=== PATIENT | male | born 1980 | race Caucasian/White ===

== ENCOUNTER 2022-12-22 00:41 | Inpatient (IN) | payer MEDICAID, OTHER ==
[2022-12-22] MEDS ORDERED: MAGNESIUM HYDROXIDE 2,400 MG/30 ML CUP PO PRN (21:11)
[2022-12-22] MEDS ORDERED: ACETAMINOPHEN TAB 325 MG TAB PO PRN (21:11)
[2022-12-22] MEDS ORDERED: MAG HYDROX/AL HYDROX/SIMETH 30 ML CUP PO PRN (21:11)
[2022-12-22] MEDS ORDERED: OLANZapine 5 MG TAB PO PRN (21:19)
[2022-12-22] MEDS ORDERED: OLANZapine 10 MG VIAL IM PRN (21:19)
[2022-12-22] MEDS ORDERED: hydrOXYzine pamoate 25 MG CAP PO PRN (22:00)
[2022-12-22] MEDS ORDERED: hydrOXYzine HCL 50 MG/ML 1 ML VIAL IM PRN (22:00)
[2022-12-23] MEDS: lamoTRIgine 100 MG TAB PO SCH ×2 (08:59→20:36)
[2022-12-23] MEDS: VENLAFAXINE HCL ER 150 MG CAP PO SCH (08:59)
[2022-12-23] MEDS: NICOTINE 14MG/24HR PATCH TRANSDERM SCH (08:59)
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
[2022-12-23 11:52] LABS: Basophils % (A) 0 %; Eosinophils # (A) 0.1 k/uL (0-0.7); Eosinophils % (A) 1 %; HCT 46.1 % (39.0-53.0); HGB 15.2 gm/dL (13.0-17.5); Lymphocytes # (A) 1.9 k/uL (1.0-4.8); Lymphocytes % (A) 26 %; MCH 32.4 pg (25.0-35.0); MCV 98.2 fL (80.0-100.0); Mean Platelet Volume 8.9; Monocytes # (A) 0.4 k/uL (0-1.0); Monocytes % (A) 6 %; Neutrophils # (A) 4.7 k/uL (1.3-7.7); Neutrophils % (A) 65 %; Platelet Count 250 k/uL (150-450); WBC 7.2 k/uL (3.8-10.6)
[2022-12-23 12:15] LABS: ALT 26 U/L (4-49); AST 33 U/L (17-59); African American GFR (CKD) >90 (>60 ml/min/1.73 sqM); Albumin 4.4 g/dL (3.5-5.0); Alkaline Phosphatase 73 U/L (38-126); Anion Gap 6 mmol/L; Bilirubin, Delta 0.2 mg/dL (0.0-0.2); Bilirubin,Unconjugated 0.3 mg/dL (0.0-1.1); Blood Urea Nitrogen 9 mg/dL (9-20); Calcium 9.3 mg/dL (8.4-10.2); Carbon Dioxide 28 mmol/L (22-30); Chloride 105 mmol/L (98-107); Glucose 109 mg/dL (74-99); Non-African American GFR(CKD) >90 (>60 ml/min/1.73 sqM); Potassium 4.7 mmol/L (3.5-5.1); Sodium 139 mmol/L (137-145); Total Bilirubin 0.5 mg/dL (0.2-1.3)
[2022-12-23 16:13] LABS: Chol/HDL Ratio 3.61 Ratio; LDL Cholesterol,Calculated 115.6 mg/dL (0.0-131.0); VLDL Calculation 19.56 mg/dL (5.00-40.00)
[2022-12-23] MEDS: FAMOTIDINE 20 MG TAB PO SCH (20:37)
[2022-12-23] MEDS: QUEtiapine 100 MG TAB PO SCH (20:37)
[2022-12-23] MEDS: TEMAZEPAM 7.5 MG CAP PO SCH (20:37)
--- NOTE | 2022-12-24 01:48 | P.CONS ---
History of Present Illness - Reason for Consult Consult date: 12/24/22 - History of Present Illness The patient is a 42-year-old male who was transferred from [facility] with the patient had presented to the emergency room with the depression and suicidal ideation. The patient was seen at the [facility] unit. He reports that he recently is undergoing a divorce and that he was feeling really down about his life especially after finding out that his was checking ot her men. He denied any physical complaints at the time of interview however. He denied experiencing chest discomfort, shortness of breath, fever, chills, cough, nausea, vomiting, abdominal pain, diarrhea. Denied tobacco, alcohol, or substance use Review of systems: Pertinent positives and negatives as discussed in HPI, a complete review of systems was performed and all other systems are negative. Physical examination: General: non toxic, no distress, appears at stated age, normal weight Derm: no unusual rashes/lesions, no unusual ecchymoses, warm, dry Head: atraumatic, normocephalic, symmetric Eyes: EOMI, no lid lag, anicteric sclera ENT: Nose and ears atraumatic, no thrush, no pharyngeal erythema Neck: trachea midline, supple Mouth: no lip lesion, mucus membranes moist Cardiovascular: S1S2 reg, no murmur, no edema Lungs: CTA bilateral, no rhonchi, no rales , no accessory muscle use Abdominal: soft, nontender to palpation, no guarding Ext: no gross muscle atrophy, no contractures, Neuro: No gross focal neuro deficits noted Psych: Alert, oriented, appropriate affect Assessment: Depression and suicidal ideation Data Review: Reviewed with glucose 109 with hemoglobin A1c 5.4 Plan: Defer management to primary psychiatry service Thank you for allowing us to participate in the care of this patient. We will follow peripherally. Do not hesitate to contact us with questions. Someone can be reached from the [facility] hospitalist group at all hours of the day at [phone]. Past Medical History Past Medical History: Eye Disorder, GERD/Reflux Additional Past Medical History / Comment(s): Patient far sided eyesight, GERD, hiatal hernia, incontinence, History of Any Multi-Drug Resistant Organisms: None Reported Past Surgical History: Appendectomy, Orthopedic Surgery, Tonsillectomy Additional Past Surgical History / Comment(s): Hx of 5 surgeries on R Rotator Cuff, Hx of 4 knee surgeries on bilateral knees Past Anesthesia/Blood Transfusion Reactions: No Reported Reaction Smoking Status: Current every day smoker - Past Family History Mother History Unknown: Yes Medications and Allergies Home Medications Medication Instructions Recorded Confirmed Type Alfuzosin HCl [Alfuzosin HCl ER] 10 mg PO DAILY 12/23/22 12/23/22 History Esomeprazole Magnesium [NexIUM 40 mg PO DAILY 12/23/22 12/23/22 History 24Hr] Famotidine 20 mg PO HS 12/23/22 12/23/22 History QUEtiapine [SEROquel] 100 mg PO HS 12/23/22 12/23/22 History Venlafaxine HCl [Effexor XR] 150 mg PO DAILY 12/23/22 12/23/22 History lamoTRIgine [LaMICtal] 150 mg PO BID 12/23/22 12/23/22 History Allergies Allergy/AdvReac Type Severity Reaction Status Date / Time amoxicillin Allergy Rash/Hives Verified 12/23/22 09:13 Penicillins Allergy Rash/Hives Verified 12/23/22 09:13 Results CBC & Chem 7: 12/23/22 10:51 12/23/22 10:51 Labs: Abnormal Lab Results - Last 24 Hours (Table) 12/23/22 Range/Units 10:51 Glucose 109 H (74-99) mg/dL
[2022-12-24] MEDS: NICOTINE 14MG/24HR PATCH TRANSDERM SCH (08:17)
[2022-12-24] MEDS: VENLAFAXINE HCL ER 150 MG CAP PO SCH (08:18)
[2022-12-24] MEDS: TAMSULOSIN 0.4 MG CAP.ER.24H PO SCH (08:18)
[2022-12-24] MEDS: PANTOPRAZOLE 40 MG TABLET PO SCH (08:18)
[2022-12-24] MEDS: lamoTRIgine 100 MG TAB PO SCH ×2 (08:18→19:59)
--- NOTE | 2022-12-24 11:09 | P.PN ---
Progress Note - Text Progress Note Date: 12/24/22 Interval History: Patient was seen resting in bed and was directable and agreeable to speak with creative services writer in the office. Currently, the patient is not reporting any suicidal or homicidal ideation, intention, and/or plan. He is not reporting any auditory or visual hallucinations. He denies any paranoia or other delusions. He does report that he is feeling "85% better." He acknowledges that being away from his stressor has been the most helpful. He also is able to acknowledge that the stressor is out there upon discharge. He reports that he plans to stay with his uncle and will sign a release of information to confirm this. The patient has been primarily isolative to himself in his room. He reports that he likes the peace and quiet. He reports no medical issues or concerns and denies any side effects to his medications. Mental Status Exam: General Appearance: Patient appears to be stated age is alert, friendly, directable, and cooperative. Behavior: Patient is calmly seated without any agitated behavior. Speech: Patient's speech is fluent and nonpressured. Mood/Affect: Mood is improving mildly, affect is congruent and euthymic to bright. Suicidality/Homicidality: Patient denies any suicidal or homicidal ideation Perceptions: Patient denies any visual hallucinations and denies any auditory hallucinations Though content/process: There is no evidence of any delusional thought content and thought process is linear and goal-directed. Memory and concentration: AOX3, grossly intact for the purposes of this session Judgment and insight: Improving mildly Vital Signs Temp 97.2 F L 12/24/22 05:43 Pulse 88 12/24/22 05:43 Resp 18 12/24/22 05:43 BP 111/62 12/24/22 05:43 Pulse Ox 98 12/24/22 05:43 FiO2 Allergies Allergy/AdvReac Type Severity Reaction Status Date / Time amoxicillin Allergy Rash/Hives Verified 12/23/22 09:13 Penicillins Allergy Rash/Hives Verified 12/23/22 09:13 Assessment Adjustment disorder with mixed depression and anxiety Nicotine dependence Plan: -Patient continues to meet criteria for inpatient psychiatric admission for symptom stabilization and safety. Patient has signed adult voluntary form and medication consent and was placed in patient's chart. -Medications: Continue Seroquel 100 mg by mouth at bedtime for mood stabilization/insomnia Continue Effexor XR 150 mg by mouth daily for depression/anxiety Continue Lamictal 150 mg by mouth twice a day for mood stabilization Continue Restoril 7.5 mg by mouth at bedtime for acute stress/anxiety -When necessary Vistaril and Zyprexa for agitation/aggression. -NRT - nicotine patch -SW on board for discharge planning. Encouraged the patient to participate in milieu.
[2022-12-24] MEDS: FAMOTIDINE 20 MG TAB PO SCH (19:59)
[2022-12-24] MEDS: TEMAZEPAM 7.5 MG CAP PO SCH (20:00)
[2022-12-24] MEDS: QUEtiapine 100 MG TAB PO SCH (20:01)
[2022-12-24] MEDS: IBUPROFEN 600 MG TAB PO PRN (20:30)
[2022-12-25 06:55] VITALS: BP 93/52; PULSE 66; RESP 19; TEMP 98.3
[2022-12-25] MEDS: VENLAFAXINE HCL ER 150 MG CAP PO SCH (08:12)
[2022-12-25] MEDS: lamoTRIgine 100 MG TAB PO SCH (08:12)
[2022-12-25] MEDS: PANTOPRAZOLE 40 MG TABLET PO SCH (08:12)
[2022-12-25] MEDS: NICOTINE 14MG/24HR PATCH TRANSDERM SCH (08:12)
[2022-12-25] MEDS: TAMSULOSIN 0.4 MG CAP.ER.24H PO SCH (08:12)
[2022-12-25] MEDS: IBUPROFEN 600 MG TAB PO PRN (08:13)
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
== END 2022-12-25 14:02 | disposition home or self-care (01) | DRG 755 ==
LOC: 3MHU 12-23 01:09
PROVIDERS: ADMIT Psychiatry & Neurology Psychiatry; ATTEND Psychiatry & Neurology Psychiatry
DX: F43.23 Adjustment disorder with mixed anxiety and depressed mood (principal); R45.851 Suicidal ideations; F17.210 Nicotine dependence, cigarettes, uncomplicated; G47.00 Insomnia, unspecified; K21.9 Gastro-esophageal reflux disease without esophagitis; R32 Unspecified urinary incontinence; Z87.19 Personal history of other diseases of the digestive system; Z88.1 Allergy status to other antibiotic agents; Z88.0 Allergy status to penicillin; Z71.6 Tobacco abuse counseling; Z79.899 Other long term (current) drug therapy
CPT/HCPCS: 80053; 80061; 82248; 83036; 84443; 85025